=== PATIENT | female | born 1990 | race Caucasian/White ===

== ENCOUNTER 2018-07-06 18:52 | Emergency (ER) | payer OTHER ==
[~2018-07-06] VITALS: Ht 162.6 cm; Wt 74.8 kg
[~2018-07-06 18:52] MED LIST: ALBU8.5H5 INH; DESO1TAB14 PO; PROP80CA3 PO
[2018-07-06 18:58] VITALS: BP 140/104
[2018-07-06] MEDS ORDERED: DEXAMETHASONE 4 MG TABLET ONE (19:07)
[2018-07-06] MEDS ORDERED: DEXAMETHASONE 4 MG/ML, 1ML PO ONE (19:30)
== END 2018-07-06 20:13 | disposition home or self-care (01) ==
LOC: ED 19:45
DX: J02.0 Streptococcal pharyngitis (principal); F31.9 Bipolar disorder, unspecified; I10 Essential (primary) hypertension; J45.909 Unspecified asthma, uncomplicated; F17.200 Nicotine dependence, unspecified, uncomplicated
CPT/HCPCS: 99283; J1100

== ENCOUNTER 2018-07-09 12:59 | Emergency (ER) | payer OTHER ==
[~2018-07-09] VITALS: Ht 162.6 cm; Wt 75.1 kg
[2018-07-09] MEDS ORDERED: METOCLOPRAMIDE 5 MG/ML, 2ML ONE (13:48)
[2018-07-09] MEDS ORDERED: DIPHENHYDRAMINE 50 MG/ML, 1ML ONE (13:48)
[2018-07-09] MEDS ORDERED: KETOROLAC 30 MG/1 ML ONE (13:48)
[2018-07-09] MEDS ORDERED: DIPHENHYDRAMINE 50 MG/ML, 1ML IVPush ONE (14:00)
[2018-07-09] MEDS ORDERED: METOCLOPRAMIDE 5 MG/ML, 2ML IVPush ONE (14:00)
[2018-07-09] MEDS ORDERED: KETOROLAC 30 MG/1 ML IVPush ONE (14:00)
[2018-07-09] MEDS ORDERED: SODIUM CHLORIDE 0.9% 1,000ML IVBOLUS ONE (14:00)
[2018-07-09] MEDS ORDERED: SODIUM CHLORIDE FLUSH 10ML SYR IVF ONE (14:00)
[2018-07-09 14:16] LABS: BASOPHILS # (AUTO) 0.05 x10^3/uL (0-0.1); BASOPHILS % (AUTO) 1 % (0-1); EOSINOPHILS # (AUTO) 0.15 x10^3/uL (0-0.4); EOSINOPHILS % (AUTO) 2 % (1-7); LYMPHOCYTES # (AUTO) 2.47 x10^3/uL (1-3.4); LYMPHOCYTES % (AUTO) 27 % (22-44); MD NO; MEAN CORPUSCULAR HEMOGLOBIN 27.9 pg (27.0-34.8); MEAN CORPUSCULAR HGB CONC 32.8 g/dL (32.4-35.8); MEAN PLATELET VOLUME 8.4 fL (7.4-10.4); MONOCYTES # (AUTO) 0.65 x10^3/uL (0.2-0.8); MONOCYTES % (AUTO) 7 % (2-9); NEUTROPHILS # (AUTO) 5.79 x10^3/uL (1.8-6.8); NEUTROPHILS % (AUTO) 64 % (42-75); PLATELET COUNT 334 x10^3/uL (130-400); RED BLOOD COUNT 5.05 x10^6/uL (3.82-5.3); RED CELL DISTRIBUTION WIDTH 14.2 % (9.6-15.2)
[2018-07-09 14:30] LABS: ANION GAP 8 mmol/L (5-15); CALCIUM 8.4 mg/dL (8.5-10.1); CHLORIDE 111 mmol/L (98-107); CREATININE 0.54 mg/dL (0.55-1.02)
[2018-07-09 14:41] LABS: MICROSCOPIC NOT IND
[2018-07-09 14:45] LABS: CULTURE INDICATED? NO
[2018-07-09 15:34] VITALS: BP 116/78
== END 2018-07-09 15:36 | disposition home or self-care (01) ==
LOC: ED 14:44
DX: R19.7 Diarrhea, unspecified (principal); R11.2 Nausea with vomiting, unspecified; G44.209 Tension-type headache, unspecified, not intractable; I10 Essential (primary) hypertension; J45.909 Unspecified asthma, uncomplicated
CPT/HCPCS: 36415; 80048; 81003; 84703; 85025; 96361; 96374; 96375; 99285; J1200; J1885; J2765; J7030

== ENCOUNTER 2018-07-21 15:17 | Emergency (ER) | payer SELFPAY ==
[~2018-07-21] VITALS: Ht 162.6 cm; Wt 74.6 kg
[2018-07-21 16:16] LABS: BASOPHILS # (AUTO) 0.03 x10^3/uL (0-0.1); BASOPHILS % (AUTO) 0 % (0-1); EOSINOPHILS # (AUTO) 0.04 x10^3/uL (0-0.4); EOSINOPHILS % (AUTO) 0 % (1-7); LYMPHOCYTES # (AUTO) 2.15 x10^3/uL (1-3.4); LYMPHOCYTES % (AUTO) 20 % (22-44); MD NO; MEAN CORPUSCULAR HEMOGLOBIN 28.3 pg (27.0-34.8); MEAN CORPUSCULAR HGB CONC 33.2 g/dL (32.4-35.8); MEAN CORPUSCULAR VOLUME 85.2 fL (80-100); MEAN PLATELET VOLUME 8.4 fL (7.4-10.4); MONOCYTES # (AUTO) 0.74 x10^3/uL (0.2-0.8); MONOCYTES % (AUTO) 7 % (2-9); NEUTROPHILS # (AUTO) 7.99 x10^3/uL (1.8-6.8); NEUTROPHILS % (AUTO) 73 % (42-75); PLATELET COUNT 359 x10^3/uL (130-400); RED BLOOD COUNT 5.11 x10^6/uL (3.82-5.3); RED CELL DISTRIBUTION WIDTH 14.8 % (9.6-15.2)
[2018-07-21 16:28] LABS: ALANINE AMINOTRANSFERASE 19 U/L (12-78); ALBUMIN 3.7 g/dL (3.4-5.0); ANION GAP 9 mmol/L (5-15); CALCIUM 8.7 mg/dL (8.5-10.1); CHLORIDE 109 mmol/L (98-107); CREATININE 0.64 mg/dL (0.55-1.02)
[2018-07-21 16:32] LABS: ALKALINE PHOSPHATASE 85 U/L (45-117); BILIRUBIN,TOTAL 0.4 mg/dL (0.2-1.0); TOTAL PROTEIN 7.4 g/dL (6.4-8.2)
[2018-07-21 17:03] LABS: MICROSCOPIC NOT IND
[2018-07-21 17:04] LABS: CULTURE INDICATED? YES
[2018-07-21] MEDS ORDERED: OMNIPAQUE 350 MG/ML, 100ML BOTTLE ONE (17:15)
[2018-07-21 18:38] VITALS: BP 138/79
== END 2018-07-21 19:12 | disposition home or self-care (01) ==
LOC: ED 16:36
DX: N83.291 Other ovarian cyst, right side (principal)
CPT/HCPCS: 36415; 74177; 80053; 81003; 83690; 84703; 85025; 87086; 99285; Q9967

== ENCOUNTER 2018-07-22 18:31 | Inpatient (IN) | payer OTHER ==
[~2018-07-22] VITALS: Ht 162.6 cm; Wt 76.1 kg
[2018-07-22] MEDS ORDERED: KETOROLAC 30 MG/1 ML IVPush ONE (20:00)
[2018-07-22 20:34] LABS: MEAN CORPUSCULAR HEMOGLOBIN 27.7 pg (27.0-34.8); MEAN CORPUSCULAR HGB CONC 32.4 g/dL (32.4-35.8); MEAN CORPUSCULAR VOLUME 85.4 fL (80-100); MEAN PLATELET VOLUME 8.1 fL (7.4-10.4); PLATELET COUNT 329 x10^3/uL (130-400); RED BLOOD COUNT 4.91 x10^6/uL (3.82-5.3)
[2018-07-22 20:43] LABS: ALANINE AMINOTRANSFERASE 15 U/L (12-78); ALBUMIN 3.5 g/dL (3.4-5.0); ANION GAP 6 mmol/L (5-15); CALCIUM 8.1 mg/dL (8.5-10.1); CHLORIDE 111 mmol/L (98-107); CREATININE 0.61 mg/dL (0.55-1.02)
[2018-07-22 20:45] LABS: ALKALINE PHOSPHATASE 79 U/L (45-117); BILIRUBIN,TOTAL 0.3 mg/dL (0.2-1.0); TOTAL PROTEIN 6.9 g/dL (6.4-8.2)
[2018-07-22 20:48] LABS: BASOPHILS % (AUTO) 1 % (0-1); EOSINOPHILS # (AUTO) 0.05 x10^3/uL (0-0.4); EOSINOPHILS % (AUTO) 0 % (1-7); LYMPHOCYTES # (AUTO) 2.22 x10^3/uL (1-3.4); LYMPHOCYTES % (AUTO) 13 % (22-44); MD SCAN; MONOCYTES # (AUTO) 1.06 x10^3/uL (0.2-0.8); MONOCYTES % (AUTO) 6 % (2-9); NEUTROPHILS # (AUTO) 13.69 x10^3/uL (1.8-6.8); NEUTROPHILS % (AUTO) 80 % (42-75)
[2018-07-22] MEDS ORDERED: KETOROLAC 30 MG/1 ML ONE (21:11)
[2018-07-22 21:20] LABS: MICROSCOPIC INDICATED
[2018-07-22 21:28] LABS: CULTURE INDICATED? NO
[2018-07-22] MEDS ORDERED: ONDANSETRON 2MG/ML, 2ML ONE (23:07)
[2018-07-22] MEDS ORDERED: MORPHINE SULFATE 4 MG/ML, 1ML ONE (23:07)
[2018-07-22] MEDS ORDERED: ONDANSETRON 2MG/ML, 2ML IVPush ONE (23:30)
[2018-07-22] MEDS ORDERED: MORPHINE SULFATE 4 MG/ML, 1ML IVPush PRN (23:30)
[2018-07-22] MEDS ORDERED: SODIUM CHLORIDE 0.9% 1,000 ML IV ONE (23:46)
[2018-07-23] MEDS ORDERED: ONDANSETRON 2MG/ML, 2ML IVPush PRN
[2018-07-23] MEDS ORDERED: PHENERGAN MC SCH (01:00)
[2018-07-23] MEDS ORDERED: MEPERIDINE/PF 50 MG/ML IV PRN (01:00)
[2018-07-23 01:22] VITALS: BP 127/85
[2018-07-23] MEDS: D5%-LACTATED RINGERS 1,000 ML IV SCH ×3 (02:30→21:34)
[2018-07-23 03:32] LABS: BASOPHILS # (AUTO) 0.08 x10^3/uL (0-0.1); BASOPHILS % (AUTO) 1 % (0-1); EOSINOPHILS # (AUTO) 0.16 x10^3/uL (0-0.4); EOSINOPHILS % (AUTO) 1 % (1-7); LYMPHOCYTES % (AUTO) 19 % (22-44); MD NO; MEAN CORPUSCULAR HGB CONC 32.9 g/dL (32.4-35.8); MEAN CORPUSCULAR VOLUME 85.1 fL (80-100); MEAN PLATELET VOLUME 8.2 fL (7.4-10.4); MONOCYTES % (AUTO) 8 % (2-9); NEUTROPHILS # (AUTO) 10.39 x10^3/uL (1.8-6.8); NEUTROPHILS % (AUTO) 72 % (42-75); PLATELET COUNT 273 x10^3/uL (130-400); RED CELL DISTRIBUTION WIDTH 14.5 % (9.6-15.2)
[2018-07-23 03:36] LABS: ALANINE AMINOTRANSFERASE 13 U/L (12-78); ALBUMIN 2.9 g/dL (3.4-5.0); ANION GAP 8 mmol/L (5-15); CALCIUM 7.9 mg/dL (8.5-10.1); CHLORIDE 111 mmol/L (98-107); CREATININE 0.54 mg/dL (0.55-1.02)
[2018-07-23 03:39] LABS: ALKALINE PHOSPHATASE 71 U/L (45-117); BILIRUBIN,TOTAL 0.5 mg/dL (0.2-1.0); TOTAL PROTEIN 5.9 g/dL (6.4-8.2)
[2018-07-23] MEDS ORDERED: MEPERIDINE/PF 50 MG/ML IV STA (06:26)
[2018-07-23 07:09] VITALS: BP 118/73
[2018-07-23] MEDS ORDERED: BUPIVACAINE 0.25% ONE (10:11)
[2018-07-23] MEDS ORDERED: INDIGO CARMINE 0.8%, 5ML ONE (10:11)
[2018-07-23] MEDS ORDERED: EPINEPHRINE 1 MG/ML, 1ML ONE (10:12)
[2018-07-23] MEDS ORDERED: PROMETHAZINE 25 MG/ML, 1ML IM PRN (10:30)
[2018-07-23] MEDS ORDERED: FENTANYL PF 250 MCG/5ML ONE (12:06)
[2018-07-23] MEDS ORDERED: CIPROFLOXACIN/PMX 400MG/200ML 200 ML ONE (12:11)
[2018-07-23] MEDS ORDERED: CLINDAMYCIN 150 MG/ML, 6ML ONE (12:11)
[2018-07-23] MEDS ORDERED: BUPIVACAINE/PF-EPI 0.25% 1:200K INFIL ONE (13:08)
[2018-07-23] MEDS ORDERED: SUCCINYLCHOLINE 20 MG/ML, 10ML ONE (13:54)
[2018-07-23] MEDS ORDERED: CEFAZOLIN 1,000 MG ONE (13:54)
[2018-07-23] MEDS ORDERED: NEOSTIGMINE 1 MG/ML, 10ML ONE (13:54)
[2018-07-23] MEDS ORDERED: ONDANSETRON 2MG/ML, 2ML ONE (13:54)
[2018-07-23] MEDS ORDERED: PROPOFOL 10 MG/ML, 20ML ONE (13:54)
[2018-07-23] MEDS ORDERED: GLYCOPYRROLATE 0.2MG/1ML, 5ML ONE (13:54)
[2018-07-23] MEDS ORDERED: ROCURONIUM 10MG/ML,5ML ONE (13:54)
[2018-07-23] MEDS ORDERED: DEXAMETHASONE 4 MG/ML, 1ML ONE (13:54)
[2018-07-23] MEDS ORDERED: DIPHENHYDRAMINE 50 MG/ML, 1ML IVPush PRN (14:00)
[2018-07-23] MEDS ORDERED: OXYcodone 5 MG/5 ML ORAL.SOL UDC PO PRN (14:00)
[2018-07-23] MEDS ORDERED: HALOPERIDOL 5 MG/ML IV PRN (14:00)
[2018-07-23] MEDS ORDERED: LABETALOL 5MG/ML, 20ML IV PRN (14:00)
[2018-07-23] MEDS ORDERED: hydrALAzine 20 MG/ML, 1ML IV PRN (14:00)
[2018-07-23] MEDS ORDERED: MEPERIDINE/PF 25MG/0.5ML IVPush PRN (14:00)
[2018-07-23] MEDS ORDERED: FENTANYL PF 100 MCG/2ML IV PRN (14:00)
[2018-07-23] MEDS ORDERED: MORPHINE SULFATE 4 MG/ML, 1ML IVPush PRN ×2 (14:00)
[2018-07-23] MEDS ORDERED: PROCHLORPERAZINE 5 MG/ML, 2ML IV PRN (14:00)
[2018-07-23] MEDS ORDERED: FENTANYL PF 100 MCG/2ML ONE (14:48)
[2018-07-23] MEDS ORDERED: OXYcodone/APAP 5/325MG TABLET PO PRN (16:00)
[2018-07-23 18:42] VITALS: BP 112/67
[2018-07-24] MEDS: HYDROcodone/APAP 5/325 TABLET PO PRN ×3 (00:08→10:19)
[2018-07-24 03:55] VITALS: BP 123/80
[2018-07-24 04:26] VITALS: BP 123/80
[2018-07-24 04:59] LABS: BASOPHILS # (AUTO) 0.03 x10^3/uL (0-0.1); BASOPHILS % (AUTO) 0 % (0-1); EOSINOPHILS # (AUTO) 0.01 x10^3/uL (0-0.4); EOSINOPHILS % (AUTO) 0 % (1-7); LYMPHOCYTES # (AUTO) 1.53 x10^3/uL (1-3.4); LYMPHOCYTES % (AUTO) 11 % (22-44); MD NO; MEAN CORPUSCULAR HEMOGLOBIN 28.4 pg (27.0-34.8); MEAN PLATELET VOLUME 8.3 fL (7.4-10.4); MONOCYTES # (AUTO) 1.43 x10^3/uL (0.2-0.8); MONOCYTES % (AUTO) 10 % (2-9); NEUTROPHILS # (AUTO) 11.58 x10^3/uL (1.8-6.8); NEUTROPHILS % (AUTO) 79 % (42-75); PLATELET COUNT 281 x10^3/uL (130-400); RED BLOOD COUNT 4.15 x10^6/uL (3.82-5.3); RED CELL DISTRIBUTION WIDTH 14.4 % (9.6-15.2)
[2018-07-24 05:09] LABS: ALBUMIN 2.7 g/dL (3.4-5.0); ANION GAP 5 mmol/L (5-15); CALCIUM 8.4 mg/dL (8.5-10.1); CHLORIDE 109 mmol/L (98-107)
[2018-07-24 05:13] LABS: ALANINE AMINOTRANSFERASE 12 U/L (12-78); ALKALINE PHOSPHATASE 68 U/L (45-117); BILIRUBIN,TOTAL 0.4 mg/dL (0.2-1.0); CREATININE 0.53 mg/dL (0.55-1.02); TOTAL PROTEIN 6.1 g/dL (6.4-8.2)
[2018-07-24] MEDS: D5%-LACTATED RINGERS 1,000 ML IV SCH (06:35)
[2018-07-24 07:53] VITALS: BP 125/73
[2018-07-24] MEDS ORDERED: IBUP-1222 PO (10:17)
[2018-07-24] MEDS ORDERED: DOCU-131 PO (10:18)
[2018-07-24] MEDS ORDERED: HYDR-3237 PO (11:38)
[2018-07-24 11:50] VITALS: BP 131/82
== END 2018-07-24 11:47 | disposition home or self-care (01) | DRG 743 ==
LOC: ED 21:19 → EDIP 23:46 → 3NE 07-23 00:07 → 4NOR 07-23 19:33
PROVIDERS: ADMIT Obstetrics & Gynecology; ATTEND Obstetrics & Gynecology
PROC: 0U904ZZ Drainage of Right Ovary, Percutaneous Endoscopic Approach (ICD-10-PCS; 2018-07-23)
PROC: 3E0M3GC Introduction of Other Therapeutic Substance into Peritoneal Cavity, Percutaneous Approach (ICD-10-PCS; 2018-07-23)
PROC: 0W3J4ZZ Control Bleeding in Pelvic Cavity, Percutaneous Endoscopic Approach (ICD-10-PCS; principal; 2018-07-23 12:15)
DX: N83.201 Unspecified ovarian cyst, right side (principal); N88.2 Stricture and stenosis of cervix uteri; N83.9 Noninflammatory disorder of ovary, fallopian tube and broad ligament, unspecified; D72.829 Elevated white blood cell count, unspecified; F17.210 Nicotine dependence, cigarettes, uncomplicated; F31.9 Bipolar disorder, unspecified; I10 Essential (primary) hypertension; J45.909 Unspecified asthma, uncomplicated; R10.2 Pelvic and perineal pain; R19.7 Diarrhea, unspecified; Z88.0 Allergy status to penicillin; Z88.2 Allergy status to sulfonamides; Z88.8 Allergy status to other drugs, medicaments and biological substances
CPT/HCPCS: 36415; J3490; J7121; S0077; 76830; 80053; 81001; 85025; 87491; 87591; 96374; 96375; G0378; J0171; J0690; J0744; J1100; J1885; J2175; J2405; J2704; J2710; J3010; J0330; J7030

== ENCOUNTER 2019-01-01 11:38 | Emergency (ER) | payer OTHER ==
[~2019-01-01] VITALS: Ht 162.6 cm; Wt 76.9 kg
[~2019-01-01 11:38] MED LIST changes: +DOCU-131 PO; +HYDR-3237 PO; +IBUP-1222 PO
--- NOTE | 2019-01-01 12:12 | NUR ---
PT TO ED FOR LOWER ABD PAIN X1 MONTH. EXTENSIVE HX OF OVARIAN CYSTS, LEFT OVARY REMOVAL AND BOTH FALLOPIAN TUBES REMOVED. CONNECTED TO MONITORS. VSS. EDMD ASSESSMENT COMPLETE. AWAITING ORDERS.
--- NOTE | 2019-01-01 12:23 | NUR ---
pt up self to restroom wtih steady gait to collect ua. iv established adn labs drawn. no other needs at this time.
[2019-01-01] MEDS ORDERED: KETOROLAC 30 MG/1 ML ONE (12:25)
[2019-01-01] MEDS ORDERED: SODIUM CHLORIDE FLUSH 10ML SYR IVF ONE (12:30)
[2019-01-01] MEDS ORDERED: KETOROLAC 30 MG/1 ML IVPush ONE (12:30)
[2019-01-01 12:35] LABS: BASOPHILS # (AUTO) 0.03 x10^3/uL (0-0.1); BASOPHILS % (AUTO) 0 % (0-1); EOSINOPHILS # (AUTO) 0.14 x10^3/uL (0-0.4); EOSINOPHILS % (AUTO) 2 % (1-7); LYMPHOCYTES # (AUTO) 2.03 x10^3/uL (1-3.4); LYMPHOCYTES % (AUTO) 21 % (22-44); MD NO; MEAN CORPUSCULAR HGB CONC 32.7 g/dL (32.4-35.8); MEAN CORPUSCULAR VOLUME 82.7 fL (80-100); MEAN PLATELET VOLUME 8.4 fL (7.4-10.4); MONOCYTES # (AUTO) 0.75 x10^3/uL (0.2-0.8); MONOCYTES % (AUTO) 8 % (2-9); NEUTROPHILS # (AUTO) 6.56 x10^3/uL (1.8-6.8); NEUTROPHILS % (AUTO) 69 % (42-75); PLATELET COUNT 308 x10^3/uL (130-400); RED BLOOD COUNT 5.54 x10^6/uL (3.82-5.3); RED CELL DISTRIBUTION WIDTH 15.1 % (9.6-15.2)
[2019-01-01 12:39] LABS: ALANINE AMINOTRANSFERASE 18 U/L (12-78); ALBUMIN 3.7 g/dL (3.4-5.0); ANION GAP 7 mmol/L (5-15); CALCIUM 8.8 mg/dL (8.5-10.1); CHLORIDE 106 mmol/L (98-107); CREATININE 0.71 mg/dL (0.55-1.02)
[2019-01-01 12:43] LABS: ALKALINE PHOSPHATASE 88 U/L (45-117); BILIRUBIN,TOTAL 0.2 mg/dL (0.2-1.0)
[2019-01-01 12:50] LABS: MICROSCOPIC AUTO
[2019-01-01 12:53] LABS: CULTURE INDICATED? YES
[2019-01-01 13:34] VITALS: BP 121/55
--- NOTE | 2019-01-01 13:35 | NUR ---
PT IN US AT THIS TIME. WAITING IN ROOM.
--- NOTE | 2019-01-01 14:15 | NUR ---
all results back at this time. chart up for recheck. pt resting in room with at bedside. vss. no needs at this time. call light within reach.
== END 2019-01-01 15:53 | disposition home or self-care (01) ==
LOC: ED 12:36
DX: N83.201 Unspecified ovarian cyst, right side (principal); I10 Essential (primary) hypertension; F31.9 Bipolar disorder, unspecified
CPT/HCPCS: 36415; 76830; 80053; 81001; 83690; 84702; 85025; 87086; 96374; 99284; J1885

== ENCOUNTER 2019-01-04 16:44 | Day surgery (SDC) | payer OTHER ==
[~2019-01-04] VITALS: Ht 162.6 cm; Wt 77.0 kg
[2019-01-04 17:34] LABS: BASOPHILS # (AUTO) 0.03 x10^3/uL (0-0.1); BASOPHILS % (AUTO) 0 % (0-1); EOSINOPHILS # (AUTO) 0.11 x10^3/uL (0-0.4); EOSINOPHILS % (AUTO) 2 % (1-7); LYMPHOCYTES # (AUTO) 1.76 x10^3/uL (1-3.4); LYMPHOCYTES % (AUTO) 24 % (22-44); MD NO; MEAN CORPUSCULAR HEMOGLOBIN 27.1 pg (27.0-34.8); MEAN CORPUSCULAR HGB CONC 32.5 g/dL (32.4-35.8); MEAN CORPUSCULAR VOLUME 83.3 fL (80-100); MEAN PLATELET VOLUME 8.5 fL (7.4-10.4); MONOCYTES # (AUTO) 0.62 x10^3/uL (0.2-0.8); MONOCYTES % (AUTO) 8 % (2-9); NEUTROPHILS # (AUTO) 4.88 x10^3/uL (1.8-6.8); NEUTROPHILS % (AUTO) 66 % (42-75); PLATELET COUNT 277 x10^3/uL (130-400); RED CELL DISTRIBUTION WIDTH 14.9 % (9.6-15.2)
[2019-01-04 17:37] LABS: ALANINE AMINOTRANSFERASE 20 U/L (12-78); ALBUMIN 3.6 g/dL (3.4-5.0); ANION GAP 5 mmol/L (5-15); CALCIUM 8.4 mg/dL (8.5-10.1); CHLORIDE 111 mmol/L (98-107); CREATININE 0.68 mg/dL (0.55-1.02)
[2019-01-04 17:42] LABS: ALKALINE PHOSPHATASE 82 U/L (45-117); BILIRUBIN,TOTAL 0.3 mg/dL (0.2-1.0); TOTAL PROTEIN 6.6 g/dL (6.4-8.2)
--- NOTE | 2019-01-04 17:52 | NUR ---
PT REQUESTING NAUSEA AND PAIN MEDS. AMBULATED TO UA SENT
[2019-01-04 18:04] LABS: CULTURE INDICATED? YES; MICROSCOPIC AUTO
[2019-01-04] MEDS ORDERED: ONDANSETRON 2MG/ML, 2ML IVPush ONE (18:30)
[2019-01-04] MEDS ORDERED: MORPHINE SULFATE 4 MG/ML, 1ML IVPush PRN ×3 (18:30→21:30)
[2019-01-04] MEDS ORDERED: MORPHINE SULFATE 4 MG/ML, 1ML ONE (18:39)
[2019-01-04] MEDS ORDERED: ONDANSETRON 2MG/ML, 2ML ONE ×2 (18:39→22:27)
--- NOTE | 2019-01-04 19:10 | NUR ---
REPORT RECEIVED FROM TWYLA CHIU, ASSUMED CARE OF PT. RESTING QUIETLY, RECENTLY MEDICATED FOR PAIN, MOTHER AT BEDSIDE, CALL LIGHT IN REACH
--- NOTE | 2019-01-04 20:18 | NUR ---
PT RESTING QUIETLY, STATES PAIN MUCH BETTER, CALL LIGHT IN REACH
[2019-01-04 21:09] VITALS: BP 132/77
--- NOTE | 2019-01-04 21:13 | NUR ---
REPORT GIVEN TO OR
--- NOTE | 2019-01-04 21:24 | NUR ---
PT BELONGINGS BAGGED UP, PT READY TO GO TO OR
[2019-01-04] MEDS ORDERED: FENTANYL PF 250 MCG/5ML ONE (21:25)
[2019-01-04] MEDS ORDERED: MIDAZOLAM 1 MG/ML, 2ML ONE (21:25)
[2019-01-04] MEDS ORDERED: PROMETHAZINE 25 MG/ML, 1ML IV PRN (21:30)
[2019-01-04] MEDS ORDERED: MIDAZOLAM 1 MG/ML, 2ML IV PRN (21:30)
[2019-01-04] MEDS ORDERED: ALBUTEROL/IPRATROPIUM 2.5MG/0.5MG, 3 ML NPPB PRN (21:30)
[2019-01-04] MEDS ORDERED: MEPERIDINE/PF 25MG/0.5ML IVPush PRN (21:30)
[2019-01-04] MEDS ORDERED: ONDANSETRON 2MG/ML, 2ML IV PRN (21:30)
[2019-01-04] MEDS ORDERED: HYDROcodone/APAP 7.5-325MG/15ML UDC PO PRN (21:30)
[2019-01-04] MEDS ORDERED: SCOPOLAMINE PATCH, 1.5MG PATCH.TD72 TD PRN (21:30)
[2019-01-04] MEDS ORDERED: BUPIVACAINE/PF 0.5% ONE (22:21)
[2019-01-04] MEDS ORDERED: EPINEPHRINE 1 MG/ML, 1ML ONE (22:22)
[2019-01-04] MEDS ORDERED: SUCCINYLCHOLINE 20 MG/ML, 10ML ONE (22:27)
[2019-01-04] MEDS ORDERED: GLYCOPYRROLATE 0.2MG/1ML, 5ML ONE (22:27)
[2019-01-04] MEDS ORDERED: DEXAMETHASONE 4 MG/ML, 1ML ONE (22:27)
[2019-01-04] MEDS ORDERED: PROPOFOL 10 MG/ML, 20ML ONE (22:27)
[2019-01-04] MEDS ORDERED: NEOSTIGMINE 1 MG/ML, 10ML ONE (22:27)
[2019-01-04] MEDS ORDERED: BUPIVACAINE/PF-EPI 0.5% 1:200K INFIL ONE (22:29)
[2019-01-04] MEDS ORDERED: ROCURONIUM 10MG/ML,5ML ONE (23:00)
[2019-01-04] MEDS ORDERED: FENTANYL PF 100 MCG/2ML ONE (23:39)
[2019-01-04] MEDS ORDERED: HYDROcodone/APAP 7.5-325MG/15ML UDC ONE (23:39)
[2019-01-04] MEDS: FENTANYL PF 100 MCG/2ML IV PRN ×2 (23:42→23:51)
[2019-01-05] MEDS ORDERED: HYDR-3240 PO (01:36)
[2019-01-05] MEDS ORDERED: IBUP1TAB5 PO (01:38)
[2019-01-05] MEDS ORDERED: IBUP-1222 PO (01:38)
== END 2019-01-05 02:31 | disposition home or self-care (01) ==
LOC: ED 17:13 → OR 17:14 → UNDOADMOB 01-05 → 4NOR 01-05 → OR 01-05 → UNDODISOB 01-05 02:31
PROVIDERS: ATTEND Emergency Medicine
DX: N83.201 Unspecified ovarian cyst, right side (principal); N80.1 Endometriosis of ovary; J45.909 Unspecified asthma, uncomplicated; Z88.0 Allergy status to penicillin; Z90.722 Acquired absence of ovaries, bilateral; Z98.890 Other specified postprocedural states; Z88.1 Allergy status to other antibiotic agents; Z88.8 Allergy status to other drugs, medicaments and biological substances
CPT/HCPCS: 36415; 58662; 76830; 80053; 81001; 84703; 85025; 87086; 88305; J0171; J0330; J1100; J2250; J2405; J2704; J2710; J3010; J3490; G0378